=== PATIENT | male | born 2005 | race Caucasian/White ===

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

== ENCOUNTER → 2025-03-28 | Outpatient (CLI) | payer OTHER | LOC: LAB SHORT 16:01 → LAB 16:01 | DX: L02.31 Cutaneous abscess of buttock (principal) | CPT/HCPCS: 87070; 87075; 87076; 87077; 87185; 87186; 87205 ==